=== PATIENT | female | born 1955 | race Caucasian/White ===

== ENCOUNTER 2020-04-05 23:02 | Emergency (ER) | payer BC ==
[~2020-04-05] VITALS: Ht 157.4 cm; Wt 45.4 kg
[~2020-04-05 23:02] MED LIST: ZANTAC150 MG PO
[2020-04-06 00:12] LABS: BASO % 0.6 % (0.0-1.0); HEMATOCRIT 36.9 % (37.0-47.0); LYMPH # 0.7 10*3/uL (1.3-4.4); LYMPH % 11.9 % (27.0-41.0); MEAN CELL VOLUME 87.4 fl (81.0-99.0); MEAN CORPUSCULAR HGB 30.6 pg (27.0-31.0); MEAN PLATELET VOLUME 7.9 fl (9.6-12.3); MONO # 0.8 10*3/uL (0.1-1.0); MONO % 12.2 % (3.0-9.0); NEUT # 4.6 10*3/uL (2.3-7.9); PLATELET COUNT AUTOMATED 211 10*3/uL (130-400); RED BLOOD COUNT 4.22 10*6/uL (4.10-5.10); RED CELL DISTRI WIDTH 13.2 % (0-14.5); WHITE BLOOD COUNT 6.2 10*3/uL (4.8-10.8)
[2020-04-06 00:25] LABS: ACT PARTIAL THROMBO TIME 23.7 SECONDS (20.0-32.1); INTERNATIONAL NORM RATIO 0.9 (2.0-3.5)
[2020-04-06 00:29] LABS: ALKALINE PHOSPHATASE 43 U/L (45-117); BUN 13 mg/dl (7-24); CHLORIDE 85 mmol/L (98-107); CREATININE 0.72 mg/dL (0.55-1.02); POTASSIUM 3.6 mmol/L (3.5-5.1); SGOT/AST 86 IU/L (3-35); SGPT/ALT 76 U/L (12-78); SODIUM 121 mmol/L (136-145)
[2020-04-06 00:33] LABS: TROPONIN I < 0.015 ng/ml (<0.045)
== END 2020-04-06 03:45 | disposition home or self-care (01) ==
LOC: ED 23:02
PROVIDERS: Emergency Medicine Emergency Medical Services
DX: S00.03XA Contusion of scalp, initial encounter (principal); E87.1 Hypo-osmolality and hyponatremia; W19.XXXA Unspecified fall, initial encounter; Y93.89 Activity, other specified; Y92.89 Other specified places as the place of occurrence of the external cause; Y99.8 Other external cause status

== ENCOUNTER → 2022-01-14 | Outpatient (CLI) | payer BC | END | disposition home or self-care (01) | LOC: RAD 08:00 | PROVIDERS: ATTEND Family Medicine | DX: K21.9 Gastro-esophageal reflux disease without esophagitis (principal); K22.2 Esophageal obstruction ==

== ENCOUNTER → 2022-05-31 | Outpatient (CLI) | payer BC | END | disposition home or self-care (01) | LOC: LAB 12:51 | PROVIDERS: ATTEND Nurse Practitioner Family | DX: R19.7 Diarrhea, unspecified (principal) ==

== ENCOUNTER 2022-07-16 13:50 | Emergency (ER) | payer BC ==
[~2022-07-16] VITALS: Ht 167.6 cm; Wt 52.2 kg
[2022-07-16 14:46] LABS: BASO % 0.7 % (0.0-1.0); EOS # 0.1 10*3/uL (0.0-0.4); HEMATOCRIT 38.8 % (37.0-47.0); LYMPH # 1.3 10*3/uL (1.3-4.4); LYMPH % 21.7 % (27.0-41.0); MEAN CORPUSCULAR HGB 27.9 pg (27.0-31.0); MEAN CORPUSCULAR HGB CONC 32.5 g/dl (33.0-37.0); MONO # 0.5 10*3/uL (0.1-1.0); MONO % 7.5 % (3.0-9.0); NEUT # 4.1 10*3/uL (2.3-7.9); NEUT % 68.9 % (47.0-73.0); PLATELET COUNT AUTOMATED 201 10*3/uL (130-400); RED BLOOD COUNT 4.51 10*6/uL (4.10-5.10)
[2022-07-16 14:57] LABS: ACT PARTIAL THROMBO TIME 24.5 SECONDS (20.0-32.1); INTERNATIONAL NORM RATIO 0.9 (2.0-3.5)
[2022-07-16 15:06] LABS: ALKALINE PHOSPHATASE 70 U/L (45-117); BUN 14 mg/dl (7-24); CHLORIDE 103 mmol/L (98-107); CREATININE 0.76 mg/dL (0.55-1.02); LIPASE 282 U/L (73-393); SGOT/AST 11 IU/L (3-35); SGPT/ALT 19 U/L (12-78); SODIUM 137 mmol/L (136-145); TOTAL PROTEIN 6.6 gm/dL (6.4-8.2)
[2022-07-16] MEDS ORDERED: PREDNISONE20 M1 PO (21:25)
[2022-07-16] MEDS ORDERED: RELAFEN500 M1 PO (21:25)
== END 2022-07-16 21:40 | disposition home or self-care (01) ==
LOC: ED 13:50
PROVIDERS: Emergency Medicine
DX: R09.1 Pleurisy (principal); Z88.0 Allergy status to penicillin; Z91.040 Latex allergy status; Z90.49 Acquired absence of other specified parts of digestive tract; Z90.89 Acquired absence of other organs; F17.200 Nicotine dependence, unspecified, uncomplicated

== ENCOUNTER → 2023-12-27 | Outpatient (CLI) | payer BC ==
[~2023-12-27] MED LIST changes: +IOHEXOL 300 MG/ML 100 ML VIAL IV ONE; +PREDNISONE20 M1 PO; +RELAFEN500 M1 PO
== END | disposition home or self-care (01) ==
LOC: CT 10:32
PROVIDERS: ATTEND Family Medicine
DX: K76.0 Fatty (change of) liver, not elsewhere classified (principal); R14.0 Abdominal distension (gaseous); J43.9 Emphysema, unspecified; K57.30 Diverticulosis of large intestine without perforation or abscess without bleeding; K40.90 Unilateral inguinal hernia, without obstruction or gangrene, not specified as recurrent; I70.0 Atherosclerosis of aorta

== ENCOUNTER 2024-03-22 21:20 | Emergency (ER) | payer MEDICARE, OTHER ==
[~2024-03-22] VITALS: Ht 160 cm; Wt 52.2 kg
[~2024-03-22 21:20] MED LIST changes: -IOHEXOL 300 MG/ML 100 ML VIAL IV ONE
[2024-03-22] MEDS ORDERED: MORPHINE Sulfate 2 MG/ML SYR IV ONE (21:35)
[2024-03-22] MEDS ORDERED: Albuterol Sulf/Ipratropium 3 ML VIAL NEB ONE (21:45)
[2024-03-22 21:55] LABS: BASO # 0.1 10*3/uL (0.0-0.1); BASO % 0.6 % (0.0-1.0); EOS # 0.1 10*3/uL (0.0-0.4); EOS % 1.3 % (1.0-4.0); LYMPH # 1.4 10*3/uL (1.3-4.4); LYMPH % 15.3 % (27.0-41.0); MEAN CELL VOLUME 89.4 fl (81.0-99.0); MEAN CORPUSCULAR HGB 29.1 pg (27.0-31.0); MEAN CORPUSCULAR HGB CONC 32.6 g/dl (33.0-37.0); MEAN PLATELET VOLUME 8.2 fl (9.6-12.3); MONO # 0.8 10*3/uL (0.1-1.0); MONO % 8.3 % (3.0-9.0); NEUT # 6.8 10*3/uL (2.3-7.9); NEUT % 73.1 % (47.0-73.0); PLATELET COUNT AUTOMATED 260 10*3/uL (130-400); RED BLOOD COUNT 4.36 10*6/uL (4.10-5.10); RED CELL DISTRI WIDTH 12.1 % (0-14.5); WHITE BLOOD COUNT 9.2 10*3/uL (4.8-10.8)
[2024-03-22 22:09] LABS: ACT PARTIAL THROMBO TIME 25.1 SECONDS (20.0-32.1)
[2024-03-22 22:14] LABS: ALKALINE PHOSPHATASE 71 U/L (46-116); BUN 12 mg/dl (9-23); CHLORIDE 99 mmol/L (98-107); POTASSIUM 4.2 mmol/L (3.4-5.1); SGPT/ALT 10 U/L (5-49); TOTAL PROTEIN 7.2 gm/dL (6.0-8.0)
[2024-03-22 23:47] LABS: BILIRUBIN Negative (Negative); BLOOD Negative (Negative); CLARITY Clear (Clear); COLOR Yellow (Yellow); GLUCOSE Negative (Negative); KETONE Negative (Negative); LEUKO ESTERASE Negative (Negative); NITRITE Negative (Negative); PH 5.5 (4.5-8.0); SPECIFIC GRAVITY <= 1.005 (1.001-1.030); UROBILINOGEN 0.2 E.U./dl (0.0-1.0)
[2024-03-22 23:55] LABS: EPITHELIAL CELLS 0-2; RBC 0-2 rbc/hpf (0-2); WBC 0-2 wbc/hpf (0-5)
[2024-03-23] MEDS ORDERED: PERCOCET 5-3251 EACH PO (00:13)
[2024-03-23] MEDS ORDERED: Acetaminophen/Oxycodone 5 MG/325 MG TABLET PO ONE (00:15)
== END 2024-03-23 00:24 | disposition home or self-care (01) ==
LOC: ED 21:20
PROVIDERS: Internal Medicine
DX: S22.41XA Multiple fractures of ribs, right side, initial encounter for closed fracture (principal); E87.1 Hypo-osmolality and hyponatremia; Z88.0 Allergy status to penicillin; Z91.040 Latex allergy status; Z90.49 Acquired absence of other specified parts of digestive tract; Z98.890 Other specified postprocedural states; X58.XXXA Exposure to other specified factors, initial encounter; Y93.89 Activity, other specified; Y92.89 Other specified places as the place of occurrence of the external cause; Y99.8 Other external cause status

== ENCOUNTER → 2025-03-18 | Outpatient (CLI) | payer MEDICARE, OTHER ==
[~2025-03-18] MED LIST changes: +PERCOCET 5-3251 EACH PO
[2025-03-18 14:17] LABS: HEMATOCRIT 37.7 % (37.0-47.0); MEAN CORPUSCULAR HGB 26.7 pg (27.0-31.0); MEAN CORPUSCULAR HGB CONC 32.1 g/dl (33.0-37.0); MEAN PLATELET VOLUME 7.8 fl (9.6-12.3); RED BLOOD COUNT 4.54 10*6/uL (4.10-5.10); RED CELL DISTRI WIDTH 15.9 % (0-14.5); WHITE BLOOD COUNT 5.9 10*3/uL (4.8-10.8)
[2025-03-18 14:50] LABS: ALKALINE PHOSPHATASE 51 U/L (46-116); BUN 7 mg/dl (9-23); CHLORIDE 99 mmol/L (98-107); CHOLESTEROL 257 mg/dL (<200); FREE T4 1.66 ng/dl (0.89-1.76); LDL CHOLESTEROL 157 mg/dL (9-159); POTASSIUM 4.3 mmol/L (3.4-5.1); SGPT/ALT 13 U/L (5-49); TOTAL PROTEIN 6.9 gm/dL (6.0-8.0); TRIGLYCERIDES 95 mg/dl (<150)
== END | disposition home or self-care (01) ==
LOC: LAB 13:59
PROVIDERS: Family Medicine
DX: I10 Essential (primary) hypertension (principal); E78.00 Pure hypercholesterolemia, unspecified; R19.00 Intra-abdominal and pelvic swelling, mass and lump, unspecified site; G47.00 Insomnia, unspecified